=== PATIENT | female | born 1975 | race Caucasian/White ===

== ENCOUNTER 2021-08-07 17:43 | Emergency (ER) | payer SELFPAY ==
[~2021-08-07] VITALS: Ht 170.1 cm; Wt 81.6 kg
--- NOTE | 2021-08-07 18:07 | ED Cough/URI ---
General Chief Complaint: COVID19 Suspect/Confirmed Stated Complaint: TROUBLE BREATHING,BODY ACHES,FEVER,COUGH Source: patient Exam Limitations: no limitations History of Present Illness Date Seen by Provider: Aug 07, 2021 Time Seen by Provider: 17:49 Initial Comments 46yoF with alcohol use disorder coming in due to fever, body aches, n/v, and cough. recently diagnosed with flu A 4 days ago. Patient developed symptoms yesterday. Cough is productive with white sputum. Tmax was 103. Allergies and Home Medications Allergies Coded Allergies: No Known Drug Allergies (Unverified , 08/07/21) Patient Home Medication List Home Medication List Reviewed: Yes Ondansetron (Ondansetron Odt) 4 Mg Tab.rapdis, 4 MG PO Q6H PRN for NAUSEA/VOMI TING-1ST LINE Prescribed by: FORD HUITRON on 08/07/211835 Review of Systems Review of Systems Constitutional: chills, fever EENTM: No blurred vision Respiratory: cough, short of breath Cardiovascular: No chest pain Gastrointestinal: No abdominal pain Genitourinary: no symptoms reported Musculoskeletal: no symptoms reported Skin: no symptoms reported Psychiatric/Neurological: No Symptoms Reported Hematologic/Lymphatic: No Symptoms Reported Immunological/Allergic: no symptoms reported All Other Systems Reviewed Negative Unless Noted: Yes Past Kkzyixv-Iclmmn-Thqdgz Hx Patient Social History Substance use?: No Past Medical History Surgeries: No Physical Exam Vital Signs - First Documented 08/07/21 17:50 Temp 36.9 Pulse 109 Resp 18 B/P (MAP) 134/99 (111) Pulse Ox 96 O2 Delivery Room Air Capillary Refill : Height: '" Weight: lbs. oz. kg; BMI Method: General Appearance: WD/WN, no apparent distress Eyes: Bilateral Eye Normal Inspection, Bilateral Eye PERRL HEENT: PERRL/EOMI, normal ENT inspection, pharynx normal Neck: non-tender, full range of motion, supple, normal inspection Respiratory: chest non-tender, lungs clear, normal breath sounds, no respiratory distress, no accessory muscle use Cardiovascular: regular rate, rhythm, no edema, no murmur Gastrointestinal: normal bowel sounds, non tender, soft; No distended, No guarding, No rebound Extremities: normal range of motion, non-tender, normal inspection, no pedal edema, no calf tenderness, normal capillary refill Neurologic/Psychiatric: no motor/sensory deficits, alert, normal mood/affect Skin: normal color, warm/dry Lymphatic: no adenopathy Progress/Results/Core Measures Suspected Sepsis SIRS Temperature: Pulse: Respiratory Rate: Blood Pressure / Mean: Results/Orders Lab Results Laboratory Tests Test 08/07/21 18:03 Range/Units My Orders Orders - FORD HUITRON MD Influenza A & B Antigens (08/07/21 18:07) Covid 19 Inhouse Test (08/07/21 18:07) Chest 1 View Ap/Pa Only (08/07/21 18:07) Acetaminophen Tablet (Tylenol Tablet) (08/07/21 18:15) Medications Given in ED Current Medications Medications Dose Ordered Sig/Beatris Route Start Time Stop Time Status Last Admin Dose Admin Acetaminophen 1,000 mg ONCE ONCE PO 08/07/21 18:15 08/07/21 18:16 DC 08/07/21 18:20 1,000 MG Vital Signs/I&O 08/07/21 17:50 Temp 36.9 Pulse 109 Resp 18 B/P (MAP) 134/99 (111) Pulse Ox 96 O2 Delivery Room Air Capillary Refill : Progress Note : Progress Note 46-year-old female with above history coming in due to fever, cough, vomiting. ABCs were intact and vitals were stable on presentation. Physical exam reassuring with clear lung camara. Given Tylenol for body aches. Chest x-ray ordered and interpreted by me showing no acute abnormality including no obvious pneumonia. Covid and flu test sent and pending at this time. We will send a prescription for Zofran. Overall she is well-appearing though and I believe she is stable for outpatient follow-up. She was sent home with strict return precautions. Diagnostic Imaging Diagonstic Imaging: Xray Plain Films/CT/US/NM/MRI: chest Comments NAME: VANDANA BERNARD [facility] REC#: [id number] PT STATUS: REG ER : 1975 PHYSICIAN: FORD HUITRON MD ADMIT DATE: 08/07/21/ER FS Draft Date of Exam:08/07/21 CHEST 1 VIEW AP/PA ONLY EXAM: CHEST 1 VIEW AP/PA ONLY INDICATION: Cough. Fever. Shortness of breath. COMPARISON: None. FINDINGS: Normal heart size and central pulmonary vascularity. No focal pulmonary opacity. No pleural effusion or pneumothorax. No acute osseous findings. IMPRESSION: No acute cardiopulmonary findings. Dictated on workstation # [id number] Dict: 08/07/211832 Trans: 08/07/211834 [facility] [phone] Interpreted by: TONJA TAMAYO MD Electronically signed by: Departure Impression Primary Impression: Influenza Disposition: 01 HOME, SELF-CARE Condition: Stable Departure-Patient Inst. Decision time for Depature: 18:50 Referrals: BAILEE VALLEJO MD NO,LOCAL PHYSICIAN (PCP) Primary Care Physician Patient Instructions: Flu Add. Discharge Instructions: You have influenza which is the same thing that your has. Take Tylenol 1000 g every 6 hours as needed for fever or body aches. You can also take ibuprofen 600 mg every 6 hours. Zofran can be taken for nausea. Drink plenty of fluids. If you begin feeling more short of breath or have any concerns either call a doctor or come back to the ER. Scripts Ondansetron (Ondansetron Odt) 4 Mg Tab.rapdis 4 MG PO Q6H PRN for NAUSEA/VOMITING-1ST LINE for 5 Days, #20 TAB Prov: FORD HUITRON MD 08/07/21 Work/School Note: Work Release Form Date Seen in the Emergency Department: Aug 07, 2021 Return to Work: Aug 09, 2021 Restrictions: Return-No Fever (24hrs) FORD HUITRON MD Aug 07, 2021 18:07
[2021-08-07] MEDS ORDERED: ACETAMINOPHEN 500 MG TAB (TYLENOL) PO ONE (18:15)
--- NOTE | 2021-08-07 18:35 | Diagnostic Imaging Report ---
EXAM: CHEST 1 VIEW AP/PA ONLY INDICATION: Cough. Fever. Shortness of breath. COMPARISON: None. FINDINGS: Normal heart size and central pulmonary vascularity. No focal pulmonary opacity. No pleural effusion or pneumothorax. No acute osseous findings. IMPRESSION: No acute cardiopulmonary findings. Dictated by: Dictated on workstation # [id number]
[2021-08-07] MEDS ORDERED: ONDA4TAB11 PO (18:36)
[2021-08-07 18:54] VITALS: BP 138/60
== END 2021-08-07 18:53 | disposition home or self-care (01) ==
LOC: ER FS 17:45
DX: J11.1 Influenza due to unidentified influenza virus with other respiratory manifestations (principal); Z20.822 Contact with and (suspected) exposure to COVID-19
CPT/HCPCS: 71045; 87636; 87804

== ENCOUNTER 2022-11-29 19:44 | Emergency (ER) | payer MEDICAID ==
[~2022-11-29] VITALS: Ht 167 cm; Wt 81.6 kg
[~2022-11-29 19:44] MED LIST: ONDA4TAB11 PO
[2022-11-29 19:51] VITALS: BP 133/99
--- NOTE | 2022-11-29 20:08 | ED Lower Extremity ---
General Chief Complaint: Lower Extremity Stated Complaint: L FOOT PAIN, LEG NUMBNESS Source: patient, family Exam Limitations: no limitations History of Present Illness Date Seen by Provider: Nov 29, 2022 Time Seen by Provider: 19:45 Initial Comments 47-year-old female with no pertinent past medical history coming in due to left foot pain. She works in a [employer], is on her feet all day long. Left foot has been having worsening pain over the past 4 days. Initially she stated that it was numb, but she says its more like a tingling at the end of the day, and she can still feel her foot. She is unable to swallow pills and never learned how to, so she has not taken any medicines for this. Has also not seen a physician for this. Is otherwise denying any other acute complaints including any trauma, fever, redness, or any other concerns. Allergies and Home Medications Allergies Coded Allergies: No Known Drug Allergies (Unverified , 08/07/21) Patient Home Medication List Home Medication List Reviewed: Yes Ondansetron (Ondansetron Odt) 4 Mg Tab.rapdis, 4 MG PO Q6H PRN for NAUSEA/VOMITING-1ST LINE Prescribed by: FORD HUITRON on 08/07/21 [id number] Review of Systems Constitutional: No fever EENTM: no symptoms reported Respiratory: no symptoms reported Cardiovascular: no symptoms reported Gastrointestinal: no symptoms reported Genitourinary: no symptoms reported Musculoskeletal: see HPI Skin: no symptoms reported Psychiatric/Neurological: No Symptoms Reported Past Tfxccim-Couhub-Gemnuy Hx Patient Social History Tobacco Use?: Yes Tobacco type used: Cigarettes Immunizations Up To Date Influenza Vaccine Up-to-Date: No; Not Current First/Initial COVID19 Vaccinat: Not currenly vaccinated Second COVID19 Vaccination Jose E: Not currenly vaccinated Third COVID19 Vaccination Date: Not currenly vaccinated Past Medical History Surgery/Hospitalization HX: HTN; Hysterectomy; hernia repair Surgeries: No Physical Exam Vital Signs Capillary Refill : Height, Weight, BMI Height: '" Weight: lbs. oz. kg; 28.00 BMI Method: General Appearance: WD/WN, no apparent distress HEENT: PERRL/EOMI, normal ENT inspection, pharynx normal Neck: non-tender, full range of motion, supple, normal inspection Cardiovascular: regular rate, rhythm, no edema, no murmur Respiratory: chest non-tender, lungs clear, normal breath sounds, no respiratory distress, no accessory muscle use Gastrointestinal: normal bowel sounds, non tender, soft; No distended, No guarding, No rebound Feet: left foot other (Left foot with a cyst that is palpated on the plantar surface along the plantar fascia, no redness or swelling noted otherwise, she is neurovascularly intact in her feet bilaterally otherwise) Neurologic/Tendon: normal sensation, normal motor functions, normal tendon functions Neurologic/Psychiatric: no motor/sensory deficits, alert, normal mood/affect Skin: normal color, warm/dry Progress/Results/Core Measures Results/Orders My Orders Orders - FORD HUITRON MD Ibuprofen Suspension (Motrin Suspension) (11/29/22 20:15) Progress Progress Note : Progress Note 47-year-old female with above history coming in due to left foot pain. ABCs were intact and vitals were stable on presentation. Physical exam with a cyst in her left foot along the plantar surface along the plantar fascia. She does have some tenderness along the plantar fascia, likely does have some aspect of plantar fasciitis. There is no redness, does not appear infected. I did a [id number] ultrasound showing the cyst that is communicating with the tendon sheath of her plantar fascia. I offered to drain the cyst, but discussed with the patient it likely would just come back. She does not want that done at this time. I recommended follow-up with a [facility] which she is agreeable to. She is afebrile, there is no redness, no clinical signs of infection. No labs were obtained because of this but considered them. Did not order any x-ray in the absence of trauma no bony tenderness. We will give her liquid ibuprofen here since she will be able to swallow. I will then write a prescription for liquid ibuprofen. She needs a PCP, will give her information on how to follow-up with critical access hospital here. Departure Impression Primary Impression: Cyst Additional Impression: Left foot pain Disposition: 01 HOME, SELF-CARE Condition: Stable Departure-Patient Inst. Decision time for Depature: 20:06 Referrals: [facility]/YUSUF NO,LOCAL PHYSICIAN (PCP) Primary Care Physician JORGE TURCIOS DPM Patient Instructions: Heel Pain Caused by Plantar Fasciitis Add. Discharge Instructions: This is likely a mix of Planter fasciitis as well as pain from the cyst in your foot. Elevate your feet after work, rest is much as you can, and you can take liquid ibuprofen or liquid Tylenol for pain which are over the counter. A prescription for chewable ibuprofen was sent to [facility]. Follow-up with critical access hospital, the numbers in this paperwork. I also recommend following up with a [facility], Dr. Turcios would be an option in [place]. Scripts Ibuprofen (Ibuprofen) 100 Mg Tab.chew 400 MG PO Q6H PRN for PAIN for 5 Days, #80 TAB Prov: FORD HUITRON MD 11/29/22 Work/School Note: Work Release Form Date Seen in the Emergency Department: Nov 29, 2022 Return to Work: Dec 02, 2022 Restrictions: No Restrictions FORD HUITRON MD Nov 29, 2022 20:08
[2022-11-29] MEDS ORDERED: IBUP100T74 PO (20:09)
[2022-11-29] MEDS ORDERED: IBUPROFEN SUSP 100MG/5ML (MOTRIN) UDC PO ONE (20:15)
== END 2022-11-29 20:20 | disposition home or self-care (01) ==
LOC: EDUNIT# 19:44 → ER FS 19:46
DX: L72.8 Other follicular cysts of the skin and subcutaneous tissue (principal); F17.210 Nicotine dependence, cigarettes, uncomplicated; Z28.310 Unvaccinated for COVID-19